=== PATIENT | male | born 1960 | race Caucasian/White ===

== ENCOUNTER → 2017-08-28 | Day surgery (SDC) | payer OTHER ==
[~2017-08-28] VITALS: Ht 180.3 cm; Wt 79.4 kg
[~2017-08-28] MED LIST: PERCOCET 5-3251 EACH PO
--- NOTE | 2017-08-28 07:14 | ED GI/GU/ABDOMINAL COMPLAINT ---
History of Present Illness General Chief Complaint: Low Back Pain/Injury Stated Complaint: LOW BACK PAIN SINCE TUESDAY, EPISODES OF VOMITING Source: patient, family, old records Exam Limitations: no limitations Vital Signs & Intake/Output Vital Signs & Intake/Output Vital Signs Date Time Temp Pulse Resp B/P B/P Pulse O2 O2 Flow FiO2 Mean Ox Delivery Rate 08/28 1254 98.7 76 18 135/72 99 Room Air 08/28 1138 98.0 70 17 152/74 100 Room Air 08/28 0940 74 159/76 05 0822 97.6 72 17 148/82 99 Room Air 08/28 0744 98 Room Air 08/28 0648 95.7 77 18 156/91 98 Room Air Allergies Coded Allergies: NO KNOWN ALLERGIES (NONE 08/28/17) Triage Note: PT FROM HOME C/O LOWER BILATERAL BACK PAIN/ N/V SINCE TUESDAY. PT STATES SINCE TUESDAY AT WORK PT BEGAN TO FEEL BACK PAIN THAT LEAD PT TO N/V X2. PT STATES THAT IT HAS BECOME WORSE, WEAK, LETHARGIC. AFEBRILE IN TRIAGE. PTS BP ELEVATED IN TRIAGE 156/91. Triage Nurses Notes Reviewed? yes Onset: 2 days Duration: day(s):, changing over time, continues in ED, waxing and waning Timing: recent history Quality/Severity: sharpness, severe, vomiting Location: right flank Radiation: no radiation Activities at Onset: rest Prior Abdominal Problems: none Past Sexual History: Unobtainable at this time No Modifying Factors: none Associated Symptoms: abdominal pain, loss of appetite, nausea/vomiting HPI: 2 days prior to admission patient complains of right sharp waxing and waning moderate to severe flank pain followed by nausea and vomiting. The pain is been intermittent. Prior to admission pain became severe with nausea and diaphoresis. There's been no fever chills diarrhea chest pain cough shortness breath headache dysuria rash bleeding Past History Travel History Traveled to [place] past 21 day No Medical History Any Pertinent Medical History? see below for history Neurological: NONE EENT: NONE Cardiovascular: NONE Respiratory: NONE Gastrointestinal: GERD Hepatic: NONE Renal: NONE Musculoskeletal: NONE Psychiatric: NONE Endocrine: NONE Surgical History Surgical History: non-contributory Psychosocial History What is your primary language Turkish Tobacco Use: Never used Family History Hx Contributory? No Review of Systems Review of Systems Constitutional: Reports: no symptoms. EENTM: Reports: no symptoms. Respiratory: Reports: no symptoms. Cardiovascular: Reports: no symptoms. GI: Reports: see HPI, abdominal pain, nausea, vomiting. Genitourinary: Reports: no symptoms. Musculoskeletal: Reports: no symptoms. Skin: Reports: no symptoms. Neurological/Psychological: Reports: no symptoms. Hematologic/Endocrine: Reports: no symptoms. Immunologic/Allergic: Reports: no symptoms. All Other Systems: Reviewed and Negative Physical Exam Physical Exam General Appearance: well developed/nourished, alert, awake, anxious, moderate distress, thin Head: atraumatic, normal appearance Eyes: Bilateral: normal appearance, PERRL, EOMI, normal inspection. Ears, Nose, Throat, Mouth: hearing grossly normal, moist mucous membrane Neck: normal inspection, supple, full range of motion, normal alignment Respiratory: normal breath sounds, chest non-tender, no respiratory distress, quiet respiration, lungs clear Cardiovascular: regular rate/rhythm, normal peripheral pulses, norml femoral pulses equa Peripheral Pulses: 4+ carotid (R), 4+ carotid (L) Gastrointestinal: normal bowel sounds, soft, non-tender, no organomegaly Male Genitals: normal genitalia Back: normal inspection, normal range of motion, no vertebral tenderness Extremities: normal range of motion, no ligament instability Neurologic/Psych: no motor/sensory deficits, awake, alert, oriented x 3, normal gait, normal mood/affect, aphasia Skin: intact, normal color, warm/dry Core Measures ACS in differential dx? No Sepsis Present: No Sepsis Focused Exam Completed? No Progress Differential Diagnosis: biliary colic, gastritis, pancreatitis, PUD/GERD, ureterolithiasis Plan of Care: Orders Procedure Date/time Status URINALYSIS 08/28 0711 Complete LIPASE 08/28 0711 Complete COMPREHENSIVE METABOLIC PANEL 08/28 0711 Complete CBC WITHOUT DIFFERENTIAL 08/28 0611 Complete Laboratory Tests 08/28/17 0755: Urinalysis HEAVY H, Urine Color YEL, Urine Clarity HAZY H, Urine pH 7.5, Ur Specific [place] 1.020, Urine Protein NEG, Urine Ketones NEG, Urine Nitrite NEG, Urine Bilirubin NEG, Urine Urobilinogen 0.2, Ur Leukocyte Esterase NEG, Ur Microscopic SEDIMENT EXAMINED, Urine RBC 3-5, Urine WBC 1-3 H, Ur Epithelial Cells RARE, Urine Bacteria FEW H, Granular Casts 1-3 H, Urine Mucus FEW, Urine Hemoglobin MOD H, Urine Glucose NEG 05/06/18 0735: Anion Gap 12, Estimated GFR > 60, BUN/Creatinine Ratio 17.5, Glucose 126 H, Calcium 9.1, Total Bilirubin 0.6, AST 16 L, ALT 23, Alkaline Phosphatase 96, Total Protein 7.2, Albumin 4.1, Globulin 3.1, Albumin/Globulin Ratio 1.3, Lipase 77, CBC w Diff MAN DIFF ORDERED, RBC 5.09, MCV 87.3, MCH 29.2, MCHC 33.5, RDW 14.2, MPV 8.1, Gran % 78.9 H, Lymphocytes % 10.5 L, Monocytes % 9.9 H, Eosinophils % 0.5, Basophils % 0.2, Absolute Granulocytes 14.2 H, Absolute Lymphocytes 1.9, Absolute Monocytes 1.8 H, Absolute Eosinophils 0.1, Absolute Basophils 0, Platelet Estimate ADEQUATE, Normocytic RBCs VERIFIED, Normochromic RBCs VERIFIED Diagnostic Imaging: Viewed by Me: CT Scan. Discussed w/RAD: CT Scan. Radiology Impression: 1. Mild right-sided hydroureteronephrosis due to an obstructing 0.3 cm probable uric acid stone at the right ureterovesical junction. 2. No additional renal, ureteral or bladder calculi. 3. Small fat- containing umbilical hernia and bilateral inguinal hernias. 4. Moderate degenerative disc disease at the lumbosacral junction. Initial ED EKG: none Departure Departure Time of Disposition: 1231 Disposition: STILL A PATIENT Condition: Stable Clinical Impression Primary Impression: Lower obstructive uropathy Secondary Impressions: Leukocytosis Referrals: Chris De León MD (PCP/Family) Departure Forms: Customer Survey General Discharge Information OR/GI Note Spoke With: Edgar Mauricio MD ED Treatment Decision: DIYA JASMINE requires urgent operative management or an emergent procedure that cannot be performed in the Emergency Room setting. Transport To: [facility]
[2017-08-28 08:04] LABS: ABSOLUTE BASOPHIL COUNT 0 /CUMM (0.0-0.2); ABSOLUTE EOSINOPHIL COUNT 0.1 /CUMM (0.0-0.7); ABSOLUTE GRANULOCYTE CT 14.2 /CUMM (1.4-6.5); ABSOLUTE LYMPH COUNT 1.9 /CUMM (1.2-3.4); ABSOLUTE MONOCYTE COUNT 1.8 /CUMM (0.10-0.60); BASOPHIL % 0.2 % (0.0-2.0); EOSINOPHIL % 0.5 % (0-5); GRANULOCYTE % 78.9 % (42.2-75.2); HEMATOCRIT 44.4 % (42-52); MEAN CORPUSCULAR HGB 29.2 PG (27.0-31.0); MEAN CORPUSCULAR HGB CONC 33.5 G/DL (33.0-37.0); MEAN CORPUSCULAR VOLUME 87.3 FL (80.0-94.0); MEAN PLATELET VOLUME 8.1 FL (7.4-10.4); PLATELET COUNT 373 /CUMM (130-400); RBC DISTRIBUTION WIDTH 14.2 % (11.5-14.5); RED BLOOD CELL CT 5.09 /CUMM (4.70-6.10)
--- NOTE | 2017-08-28 10:25 | CT SCAN REPORT ---
EXAMINATION: CT ABDOMEN AND PELVIS WITHOUT CONTRAST CLINICAL INFORMATION: Right flank pain. Nausea, vomiting. Presumptive diagnosis of renal colic. COMPARISON: None. TECHNIQUE: Multidetector volumetric imaging was performed from the superior aspect of the liver through the pubic symphysis. Sagittal and coronal reformatted images were obtained on the technologist workstation. DLP: 283.49 mGy-cm. FINDINGS: LUNG BASES: The visualized lung bases are unremarkable. LIVER, GALLBLADDER, AND BILIARY TREE: The liver is normal in size, shape, and attenuation. No focal hepatic lesion on noncontrast imaging. No biliary ductal dilatation is present. The gallbladder is unremarkable with no evidence of radiopaque gallstones, gallbladder wall thickening, or obvious pericholecystic inflammatory changes. PANCREAS: Unremarkable on noncontrast imaging. SPLEEN, ADRENAL GLANDS: Unremarkable on noncontrast imaging. KIDNEYS AND URETERS: There is mild right-sided hiatal ureter nephrosis seen due to an obstructing 0.3 cm calcification at the right ureterovesical junction. This calcification is too small to accurately characterize in terms of stone composition but has attenuation values that range between 261 and 410 Hounsfield units, favoring a uric acid composition. No additional renal or ureteral calculi are seen. There is mild right perinephric and periureteric stranding seen. BLADDER: Suboptimally assessed due to underdistention, but grossly unremarkable. No bladder calculi seen. PELVIC VISCERA: Unremarkable. GASTROINTESTINAL TRACT: The small and large bowel are unremarkable. The appendix is unremarkable. ABDOMINAL WALL: There is a small fat-containing umbilical hernia and bilateral small fat-containing direct inguinal hernias. LYMPH NODES, VASCULAR: Mild atherosclerotic calcification of the distal abdominal aorta seen. No significant abdominal or pelvic adenopathy or free fluid collection. OSSEOUS STRUCTURES: Mild vertebral spondylosis in lower thoracic and in lumbar spine. Moderate degenerative disc disease at the lumbosacral junction with disc space narrowing, vertebral endplate sclerosis and spurring and vacuum disc phenomenon seen. No suspicious bone findings. IMPRESSION: 1. Mild right-sided hydroureteronephrosis due to an obstructing 0.3 cm probable uric acid stone at the right ureterovesical junction. 2. No additional renal, ureteral or bladder calculi. 3. Small fat-containing umbilical hernia and bilateral inguinal hernias. 4. Moderate degenerative disc disease at the lumbosacral junction.
--- NOTE | 2017-08-28 12:47 | Cons- Urology ---
General Information and HPI Consulting Request Date of Consult: 08/28/17 Requested By: MD Cheryl, [facility] Reason for Consult: severe right colic with N/V and sepsis (wbc at 18) Source of Information: patient Exam Limitations: no limitations History of Present Illness: 56 yr old with right colic X 3 days: pain with n/v worse and came to ER with mild fever. CT reveals stone right ureter with hydro. Dicussed with pt proceedure with future eswl stent, risks, benefits. pt in agreement to proceed with stent. Allergies/Medications Allergies: Coded Allergies: NO KNOWN ALLERGIES (NONE 08/28/17) Current Medications: Current Medications Sig/Nilay Start time Last Medication Dose Route Stop Time Status Admin Ceftriaxone Sodium 0 .STK-MED ONE / 1234 DC .ROUTE Ceftriaxone Sodium 1,000 MG ONCE ONE / 1230 DC 05/06 IV 05/06 1231 1234 Ketorolac 0 .STK-MED ONE / 0730 DC Tromethamine .ROUTE Ketorolac 30 MG ONCE ONE / 0715 DC 05/06 Tromethamine IV 05/06 0716 0740 Morphine Sulfate 0 .STK-MED ONE 05/ 0941 DC .ROUTE Morphine Sulfate 4 MG ONCE ONE / 0930 DC 05/06 IV 05/06 0931 0939 Ondansetron HCl 0 .STK-MED ONE 05/ 0731 DC .ROUTE Ondansetron HCl 4 MG ONCE ONE / 0715 DC 05/06 IV 05/06 0716 0740 Sodium Chloride 1,000 ML BOLUS ONE / 1130 DC 05/06 IV 05/06 1229 1102 Sodium Chloride 1,000 ML BOLUS ONE 05/ 0930 DC 05/06 IV 05/06 1029 0939 Sodium Chloride 1,000 ML BOLUS ONE 05/ 0715 DC 05/06 IV 05/06 0814 0740 Past History Medical History Neurological: NONE EENT: NONE Cardiovascular: NONE Respiratory: NONE Gastrointestinal: GERD Hepatic: NONE Renal: NONE Musculoskeletal: NONE Psychiatric: NONE Endocrine: NONE Surgical History Pertinent Surgical History: non-contributory Psychosocial History Where Do You Live? Home Who Do You Live With? spouse Services at Home: None Primary Language: Uzbek Smoking Status: Never Smoked ETOH Use: occasional use Illicit Drug Use: marijuana Functional Ability ADLs Independent: dressing, eating, toileting, bathing. Ambulation: independent IADLs Independent: shopping, housework, finances, food prep, telephone, transportation , medication admin. Employment History Employment: Employed Profession/Employer: maintenance Retired? no Review of Systems Review of Systems Constitutional: Reports: see HPI, chills. Denies: no symptoms. EENTM: Denies: no symptoms. Cardiovascular: Denies: no symptoms. Respiratory: Denies: no symptoms. GI: Reports: abdominal pain, bloating. Genitourinary: Denies: no symptoms. Musculoskeletal: Denies: no symptoms. Skin: Denies: no symptoms. Exam & Diagnostic Data Vital Signs and I&O Vital Signs Date Time Temp Pulse Resp B/P B/P Pulse O2 O2 Flow FiO2 Mean Ox Delivery Rate 08/28 1138 98.0 70 17 152/74 100 Room Air 08/28 0940 74 159/76 08/28 0822 97.6 72 17 148/82 99 Room Air 08/28 0744 98 Room Air 08/28 0648 95.7 77 18 156/91 98 Room Air Intake & Output 08/28 1600 08/28 0800 / 0000 08/27 1600 08/27 0800 08/27 0000 Intake Total 1000 Output Total Balance 1000 Intake, IV 1000 Patient 175 lb Weight Weight Reported by Patient Measurement Method Physical Exam General Appearance: well developed/nourished Head: atraumatic Neck: normal inspection Respiratory: normal breath sounds Cardiovascular: regular rate/rhythm Gastrointestinal: normal bowel sounds Back: CVA tenderness (R) Extremities: normal inspection Neurologic/Psych: no motor/sensory deficits, awake, alert, oriented x 3 Skin: intact, normal color Reproductive: Normal male genitalia Last 24 Hours of Labs: Laboratory Tests 08/28 08/28 0755 0735 Chemistry Sodium (137 - 145 mmol/L) 140 Potassium (3.5 - 5.1 mmol/L) 3.9 Chloride (98 - 107 mmol/L) 104 Carbon Dioxide (22 - 30 mmol/L) 24 Anion Gap (5 - 16) 12 BUN (9 - 20 mg/dL) 14 Creatinine (0.7 - 1.2 mg/dL) 0.8 Estimated GFR (>60 ml/min) > 60 BUN/Creatinine Ratio (7 - 25 %) 17.5 Glucose (65 - 99 mg/dL) 126 H Calcium (8.4 - 10.2 mg/dL) 9.1 Total Bilirubin (0.2 - 1.3 mg/dL) 0.6 AST (17 - 59 U/L) 16 L ALT (21 - 72 U/L) 23 Alkaline Phosphatase (< 127 U/L) 96 Total Protein (6.3 - 8.2 g/dL) 7.2 Albumin (3.5 - 5.0 g/dL) 4.1 Globulin (1.9 - 4.2 gm/dL) 3.1 Albumin/Globulin Ratio (1.1 - 2.2 %) 1.3 Lipase (23 - 300 U/L) 77 Hematology CBC w Diff MAN DIFF ORDERED WBC (4.8 - 10.8 /CUMM) 18.0 H RBC (4.70 - 6.10 /CUMM) 5.09 Hgb (14.0 - 18.0 G/DL) 14.9 Hct (42 - 52 %) 44.4 MCV (80.0 - 94.0 FL) 87.3 MCH (27.0 - 31.0 PG) 29.2 MCHC (33.0 - 37.0 G/DL) 33.5 RDW (11.5 - 14.5 %) 14.2 Plt Count (130 - 400 /CUMM) 373 MPV (7.4 - 10.4 FL) 8.1 Gran % (42.2 - 75.2 %) 78.9 H Lymphocytes % (20.5 - 51.1 %) 10.5 L Monocytes % (1.7 - 9.3 %) 9.9 H Eosinophils % (0 - 5 %) 0.5 Basophils % (0.0 - 2.0 %) 0.2 Absolute Granulocytes (1.4 - 6.5 /CUMM) 14.2 H Absolute Lymphocytes (1.2 - 3.4 /CUMM) 1.9 Absolute Monocytes (0.10 - 0.60 /CUMM) 1.8 H Absolute Eosinophils (0.0 - 0.7 /CUMM) 0.1 Absolute Basophils (0.0 - 0.2 /CUMM) 0 Platelet Estimate (ADEQUATE) ADEQUATE Normocytic RBCs VERIFIED Normochromic RBCs VERIFIED Urines Urinalysis HEAVY H Urine Color (YEL,AMB,STR) YEL Urine Clarity (CLEAR) HAZY H Urine pH (5.0 - 8.0) 7.5 Ur Specific [place] (1.001 - 1.035) 1.020 Urine Protein (NEG,<30 MG/DL) NEG Urine Ketones (NEG) NEG Urine Nitrite (NEG) NEG Urine Bilirubin (NEG) NEG Urine Urobilinogen (0.1 - 1.0 EU/dl) 0.2 Ur Leukocyte Esterase (NEG) NEG Ur Microscopic SEDIMENT EXAMINED Urine RBC (0 - 5 /HPF) 3-5 Urine WBC (0 - 2 /HPF) 1-3 H Ur Epithelial Cells (NONE,FEW) RARE Urine Bacteria (NEG/NONE) FEW H Granular Casts (NONE /LPF) 1-3 H Urine Mucus (FEW,NONE) FEW Urine Hemoglobin (NEG) MOD H Urine Glucose (N MG/DL) NEG Imaging Results: PATIENT: DIYA JASMINE PRESENT AGE: 56 PATIENT ACCOUNT NO: [id number] : 58 LOCATION: [facility] ORDERING PHYSICIAN: Norberto Smith MD SERVICE DATE: 08/28/17 EXAM TYPE: CAT - CT ABD & PELVIS W/O IV CONTRAS EXAMINATION: CT ABDOMEN AND PELVIS WITHOUT CONTRAST CLINICAL INFORMATION: Right flank pain. Nausea, vomiting. Presumptive diagnosis of renal colic. COMPARISON: None. TECHNIQUE: Multidetector volumetric imaging was performed from the superior aspect of the liver through the pubic symphysis. Sagittal and coronal reformatted images were obtained on the technologist workstation. DLP: 283.49 mGy-cm. FINDINGS: LUNG BASES: The visualized lung bases are unremarkable. LIVER, GALLBLADDER, AND BILIARY TREE: The liver is normal in size, shape, and attenuation. No focal hepatic lesion on noncontrast imaging. No biliary ductal dilatation is present. The gallbladder is unremarkable with no evidence of radiopaque gallstones, gallbladder wall thickening, or obvious pericholecystic inflammatory changes. PANCREAS: Unremarkable on noncontrast imaging. SPLEEN, ADRENAL GLANDS: Unremarkable on noncontrast imaging. KIDNEYS AND URETERS: There is mild right-sided hiatal ureter nephrosis seen due to an obstructing 0.3 cm calcification at the right ureterovesical junction. This calcification is too small to accurately characterize in terms of stone composition but has attenuation values that range between 261 and 410 Hounsfield units, favoring a uric acid composition. No additional renal or ureteral calculi are seen. There is mild right perinephric and periureteric stranding seen. BLADDER: Suboptimally assessed due to underdistention, but grossly unremarkable. No bladder calculi seen. PELVIC VISCERA: Unremarkable. GASTROINTESTINAL TRACT: The small and large bowel are unremarkable. The appendix is unremarkable. ABDOMINAL WALL: There is a small fat-containing umbilical hernia and bilateral small fat-containing direct inguinal hernias. LYMPH NODES, VASCULAR: Mild atherosclerotic calcification of the distal abdominal aorta seen. No significant abdominal or pelvic adenopathy or free fluid collection. OSSEOUS STRUCTURES: Mild vertebral spondylosis in lower thoracic and in lumbar spine. Moderate degenerative disc disease at the lumbosacral junction with disc space narrowing, vertebral endplate sclerosis and spurring and vacuum disc phenomenon seen. No suspicious bone findings. IMPRESSION: 1. Mild right-sided hydroureteronephrosis due to an obstructing 0.3 cm probable uric acid stone at the right ureterovesical junction. 2. No additional renal, ureteral or bladder calculi. 3. Small fat-containing umbilical hernia and bilateral inguinal hernias. 4. Moderate degenerative disc disease at the lumbosacral junction. Assessment/Plan Assessment/Plan right obstructing stone with hydro/sepsis. FOr right stent Copies To: Edgar Mauricio MD Consult Acknowledgment - Thank you for your consult request. Attending MD Review Statement Attending Statement Attending MD Statement: examined this patient, discuss w/resident/PA/LOGISTICS ENGINEER Attending Assessment/Plan: right stone: right stent now.
[2017-08-28 12:54] VITALS: BP 135/72
--- NOTE | 2017-08-28 15:59 | Operative Report ---
Operative/Inv Procedure Report Surgery Date: 08/28/17 Name of Procedure: Cystoscopy. Right retrograde pyelogram with stent insertion. Fluoroscopy. Pre-Operative Diagnosis: Right ureter stone with severe colic and nausea/vomiting. Post-Operative Diagnosis: Same Estimated Blood Loss: scant Surgeon/Program Services Planner: Loretta Mauricio, [facility] Anesthesia: moderate sedation Implants: 6 X 24 stent Complications: none Condition: improved Operative/Procedure Note Note: The patient was taken to the operating room placed OR table in supine position. Timeout was performed, with the patient awake, in order to confirm anesthesia, and other pertinent perioperative information. After adequate anesthesia, and antibiotics, the patient was then placed lithotomy stirrups, draped and prepped in the usual surgical fashion. A 22 Italian cystoscope sheath with 30 angle lens was inserted into the urethra, subsequently into the bladder without difficulty. Upon thorough and systematic surveillance, the bladder was noted to be free of tumor, free of stone. Both ureteral orifices were in their orthotopic position with clear reflux from the left side, and no reflux on the right. The right orifice was intubated with an open-ended ureteral access catheter. Retrograde pyelogram was gently performed in order to confirm hydronephrosis. Additionally, the retrograde helps to better define the anatomy of the ureter, and kidney using fluoroscopy. The open -ended tiger tail stent was then removed. The right orifice was then intubated with a 0.035 Glidewire, which was advanced into the right ureter, and into the right upper pole of the kidney without difficulty. Over this Glidewire, a 6 x 22 Bard onlay double J stent was railroaded into the right ureter without difficulty. With the proximal coil in the right renal pelvis, and the distal coil in the bladder, the Glidewire was removed, and the stent remained in proper place. Large amount of purulent discharge was noted to drained from the right kidney, after placement of the stent on the right side. All sponge needle and instrument counts were correct at the end of the case. The bladder was then drained via the cystoscope, and then the scope removed without difficulty. The patient tolerated the procedure well was taken to recovery room in satisfactory condition. Discharge Disposition: PACU CC: Edgar Mauricio MD
--- NOTE | 2017-08-28 17:06 | RADIOLOGY REPORT ---
EXAMINATION: XR ABDOMEN CLINICAL INDICATION: Right cystoscopy, stent placement COMPARISON: CT 08/28/2017 TECHNIQUE: Intraoperative fluoroscopy provided to Dr. Mauricio. 2 fluoroscopic images as a dose report were submitted. FLUOROSCOPY TIME: 5.2 seconds IMPRESSION: The images are not labeled with respect to sidedness. Initial image shows a wire ascending the ureter into the renal collecting system. Subsequent image shows a nephroureteral stent in place.
== END ==
LOC: ERH 06:34 → STS 13:15 → ERH 15:20
PROVIDERS: Emergency Medicine
DX: N13.2 Hydronephrosis with renal and ureteral calculous obstruction (principal); R11.2 Nausea with vomiting, unspecified; K21.9 Gastro-esophageal reflux disease without esophagitis; M54.9 Dorsalgia, unspecified
CPT/HCPCS: 74018; 74176; 81001; 96361; 96374; 96375; C2617; J0696; J1885; J2250; J2405

== ENCOUNTER → 2017-08-30 | Day surgery (SDC) | payer OTHER ==
[~2017-08-30] VITALS: Ht 180.3 cm; Wt 79.4 kg
--- NOTE | 2017-09-01 09:32 | Operative Report ---
Operative/Inv Procedure Report Surgery Date: 08/30/17 Name of Procedure: right ureter ESWL, fluoroscopy: cysto-right stent removal Pre-Operative Diagnosis: right ureter stone with hydro, ARF, and stent Post-Operative Diagnosis: resolved pain and hydronephrosis Estimated Blood Loss: scant Surgeon/Buttoner: Edgar Mauricio MD Anesthesia: moderate sedation Specimens: Right stent Complications: None Condition: Improved Operative/Procedure Note Note: The patient was taken to the operating room and placed on the ESWL table in supine position. Time out was performed, with the patient awake, to confirm identity, procedure, laterality, and other pertinent bronwyn-operative information. After adequate anesthesia, the patient was positioned so that the right flank was placed over the ESWL table cut-out, and overlying the dome of the shockwave generator. C-arm fluroscopy, as well as renal US was used to locate the stone, and evaluate the right kidney. The stone was faintly visible on fluroloscopy at the right ureter. Renal US confirmed mild hydronephrosis with no additional stone seen in the right kidney. The right ureter stone was approximate 5 mm in size, and faintly visible with fluoroscopy. Using the C-Arm fluoroscopy in an A-P, and Oblique view, the position of the ureter stone was optimized at the center of the crosshairs. At this point, E.S.W.L. was initiated at low power levels x 200 shocks. After noting the patient's tolerance to the shockwaves, the shockwave power level was quickly maximized. At the end of the procedure, the composition of the stone had changed significantly indicating the pulverization of the ureter stone. A total of 3000 shockwaves were delivered to the stone in order to achieve adequate lithotrypsy. Once the ESWL concluded, the pt. was repositioned in frog-legged position, draped and prepped in the usual surgical fashion. A 22 Finnish cystoscope sheath with a 30 angle lens was then inserted into the bladder. The bladder was thoroughly and systematically surveyed revealing no tumor no stone. Both ureteral orifices were in their orthotopic position. The right orifice was intubated with a stent. The alligator forcep was then used to grasp the stent, and the cystoscope along with entire stent was removed without difficulty. The patient tolerated the procedures well, was awakened, and taken to recovery in satisfactory condition via stretcher. The pt will be dischared to home with pain meds, diet orders, and intructions to catch fragments with straining the urine. The patient is to have follow-up renal ultrasound and KUB within 1-2 weeks and f/u in the office after discharge. Discharge Disposition: Same Day Admissions CC: Hang GRAY,Edgar
== END ==
LOC: STS 02:25
DX: N13.2 Hydronephrosis with renal and ureteral calculous obstruction (principal); N17.9 Acute kidney failure, unspecified

== ENCOUNTER 2017-10-07 19:33 | Emergency (ER) | payer OTHER ==
[~2017-10-07] VITALS: Ht 177.8 cm; Wt 77.1 kg
--- NOTE | 2017-10-07 21:48 | ED GENERAL ADULT ---
See Addendum History of Present Illness General Chief Complaint: General Adult Stated Complaint: "SOMTHING I WAS EATING GOT STUCK IN MY THROAT" Source: patient Exam Limitations: no limitations Vital Signs & Intake/Output Vital Signs & Intake/Output Vital Signs Date Time Temp Pulse Resp B/P B/P Pulse O2 O2 Flow FiO2 Mean Ox Delivery Rate 10/07 2325 98.4 75 18 166/87 98 Room Air 10/07 2143 98 Room Air 10/07 1956 98.1 65 18 160/86 98 Room Air ED Intake and Output 10/08 0000 10/07 1200 Intake Total 0 Output Total Balance 0 Intake, Oral 0 Patient 170 lb Weight Weight Reported by Patient Measurement Method Allergies Coded Allergies: NO KNOWN ALLERGIES (NONE 08/28/17) Triage Note: PT FROM HOME C/O FOOD STUCK IN THROAT?? PT STATES AROUND 1900 HE WAS EATING A SALAD AND STEAK AND NOW FEELS SOMETHING SCRATCHING IN THE BACK OF THE THROAT. PT STATES THAT HE FEELS A SCRATCHING FEELING TO THE BACK OF HIS THROAT, PT STUCK HIS FINGERS DOWN HIS THROAT TO TRY AND DISLODGE ANYTHING THAT BE MAY THERE. PT WANTS TO RULE OUT ANY METAL FROM HIS GRILL IN HIS THROAT. PT ABLE TO TOLERATE LIQUIDS, PT SELF INDUCED VOMITING X2. PTS AIRWAY PATENT 98% O2 ON RA. PT ALSO QUESTIONING POSSIBLE "CHIP OF A TOOTH THAT SCRAPED ME" ,VSS. Triage Nurses Notes Reviewed? yes Onset: Abrupt Duration: hour(s): (2), constant, continues in ED Timing: single episode today Injury Environment: home Severity: mild, moderate Severity Numbers: 7 No Modifying Factors: none Modifying Factors: Worsens With: other (Swallowing). HPI: 57-year-old male history of GERD and nephrolithiasis presents for evaluation of painful swallowing. Patient states symptoms started several hours prior to presentation when he was eating. He was eating boneless steak and salad when he suddenly felt the sensation that something was stuck in his throat. He feels like it is very painful for him to swallow he feels that there is something scratching the back of his throat. He denies any difficulty tolerating fluids no drooling no coughing or shortness of breath. He states prior to this he was feeling completely fine. No fevers no other associated symptoms. He does note that he tried to make himself throw up 2. (Black PA,Neno) Reconcile Medications Oxycodone HCl/Acetaminophen (Percocet 5-325 MG Tablet) 5 MG-325 MG TABLET 1 TAB PO 4 TIMES/DAY PRN pain (Kelsie GRAY,Jose Sanchez) Past History Travel History Traveled to [place] past 21 day No Medical History Any Pertinent Medical History? see below for history Neurological: NONE EENT: NONE Cardiovascular: NONE Respiratory: NONE Gastrointestinal: GERD Hepatic: NONE Renal: nephrolithiasis Musculoskeletal: NONE Psychiatric: NONE Endocrine: NONE Surgical History Surgical History: non-contributory Psychosocial History Services at Home None What is your primary language Icelandic Tobacco Use: Never used Illicit Drug Use: marijuana Family History Hx Contributory? No (Neno Conley) Review of Systems Review of Systems Constitutional: Reports: no symptoms. EENTM: Reports: throat pain. Respiratory: Reports: no symptoms. Cardiovascular: Reports: no symptoms. GI: Reports: no symptoms. Genitourinary: Reports: no symptoms. Musculoskeletal: Reports: no symptoms. Skin: Reports: no symptoms. Neurological/Psychological: Reports: no symptoms. Hematologic/Endocrine: Reports: no symptoms. Immunologic/Allergic: Reports: no symptoms. All Other Systems: Reviewed and Negative (Neno oCnley) Physical Exam Physical Exam General Appearance: well developed/nourished, no apparent distress, alert, awake Head: atraumatic, normal appearance Eyes: Bilateral: normal appearance, PERRL, EOMI. Ears, Nose, Throat: hearing grossly normal, poor dentition overall Neck: normal inspection, supple, full range of motion Respiratory: normal breath sounds, chest non-tender, no respiratory distress, lungs clear Cardiovascular: regular rate/rhythm, normal peripheral pulses Peripheral Pulses: 2+ radial (R), 2+ radial (L) Gastrointestinal: soft, non-tender Back: normal inspection, normal range of motion Extremities: normal inspection, normal capillary refill, normal range of motion, no edema Neurologic/Psych: no motor/sensory deficits, awake, alert, oriented x 3, normal gait Skin: intact, normal color, warm/dry Lymphatic: no anterior cervical razia Core Measures ACS in differential dx? No CVA/TIA Diagnosis: No Sepsis Present: No Sepsis Focused Exam Completed? No (Neno Conley) Progress Differential Diagnoses I considered the following diagnoses in my evaluation of the patient: [ Esophageal foreign body, esophageal stricture, peritonsillar abscess, retropharyngeal abscess] Plan of Care: Orders Procedure Date/time Status URINALYSIS 10/[address] NECK W IV CONTRAST 10/07 2146 Active TROPONIN LEVEL 10/07 2130 Complete COMPREHENSIVE METABOLIC PANEL 10/07 2130 Complete CBC WITHOUT DIFFERENTIAL 10/07 2130 Complete Laboratory Tests 10/07/172140: Anion Gap 9, Estimated GFR > 60, BUN/Creatinine Ratio 22.5, Glucose 108 H, Calcium 9.3, Total Bilirubin 0.4, AST 22, ALT 26, Alkaline Phosphatase 95, Troponin I < 0.01, Total Protein 7.3, Albumin 4.2, Globulin 3.1, Albumin/ Globulin Ratio 1.4, CBC w Diff MAN DIFF ORDERED, RBC 4.92, MCV 87.1, MCH 29.6, MCHC 34.0, RDW 14.1, MPV 7.4, Gran % 85.3 H, Lymphocytes % 7.4 L, Monocytes % 6.5, Eosinophils % 0.5, Basophils % 0.3, Absolute Granulocytes 17.1 H, Segmented Neutrophils 92 H, Absolute Lymphocytes 1.5, Lymphocytes 5 L, Monocytes 3, Absolute Monocytes 1.3 H, Absolute Eosinophils 0.1, Absolute Basophils 0.1, Platelet Estimate VERIFIED BY SMEAR, Normocytic RBCs VERIFIED, Normochromic RBCs VERIFIED, Fld Total RBCs Counted 100 Patient seen and evaluated. He is here with painful swallowing after eating. He is able tolerate fluids. He is tolerating secretions. No abnormal findings on exam other than very poor dentition. Vital signs are stable. A CT scan of the neck was obtained. Also chest x-ray and labs. Patient medicated with GI cocktail and Toradol. Patient does have a elevated white count of 20,000. His last white count one month ago was 18,000. He has no fevers. There is no signs of infection currently. Check for abscess on CT. Also get a chest x-ray and urinalysis. Patient signed out to tyrone Martinez pending ct. Initial ED EKG: none Hand-Off Endorsed To: Deisy Rodriges Endorsed Time: 2321 Pending: CT, labs (Neno Conley) Departure Departure Disposition: STILL A PATIENT Condition: Stable Clinical Impression Primary Impression: Throat pain in adult Referrals: Chris De León MD (PCP/Family) Additional Instructions: Follow-up with your primary care doctor for repeat blood work in one week. Continue Tylenol or ibuprofen as needed. Gargle salt water drink warm tea throat lozenges. Percocet for severe pain only. Monitor symptoms return with any concerns. Departure Forms: Customer Survey General Discharge Information Prescriptions: Current Visit Scripts Oxycodone HCl/Acetaminophen (Percocet 5-325 MG Tablet) 1 TAB PO 4 TIMES/DAY PRN pain #10 TAB (Neno Conley) PA/SOFTWARE DEVELOPMENT PROJECT MANAGER Co-Sign Statement Statement: ED Attending supervision documentation- [] I saw and evaluated the patient. I have also reviewed all the pertinent lab results and diagnostic results. I agree with the findings and the plan of care as documented in the PA's/SOFTWARE DEVELOPMENT PROJECT MANAGER's documentation. [x] I have reviewed the ED Record and agree with the PA's/SOFTWARE DEVELOPMENT PROJECT MANAGER's documentation. [] Additions or exceptions (if any) to the PAs/SOFTWARE DEVELOPMENT PROJECT MANAGER's note and plan are summarized below: [] (Kelsie GRAY,Jose Sanchez) Critical Care Note Critical Care Note Critical Care Time: non-applicable (Neno Conley)
[2017-10-07 21:50] LABS: ABSOLUTE BASOPHIL COUNT 0.1 /CUMM (0.0-0.2); ABSOLUTE EOSINOPHIL COUNT 0.1 /CUMM (0.0-0.7); ABSOLUTE GRANULOCYTE CT 17.1 /CUMM (1.4-6.5); ABSOLUTE LYMPH COUNT 1.5 /CUMM (1.2-3.4); ABSOLUTE MONOCYTE COUNT 1.3 /CUMM (0.10-0.60); BASOPHIL % 0.3 % (0.0-2.0); EOSINOPHIL % 0.5 % (0-5); GRANULOCYTE % 85.3 % (42.2-75.2); HEMATOCRIT 42.9 % (42-52); MEAN CORPUSCULAR HGB 29.6 PG (27.0-31.0); MEAN CORPUSCULAR VOLUME 87.1 FL (80.0-94.0); MEAN PLATELET VOLUME 7.4 FL (7.4-10.4); PLATELET COUNT 362 /CUMM (130-400); RBC DISTRIBUTION WIDTH 14.1 % (11.5-14.5); RED BLOOD CELL CT 4.92 /CUMM (4.70-6.10); WHITE BLOOD CELL COUNT 20.1 /CUMM (4.8-10.8)
[2017-10-07] MEDS ORDERED: PERCOCET 5-3251 EACH PO (23:22)
[2017-10-07 23:25] VITALS: BP 166/87
--- NOTE | 2017-10-07 23:36 | RADIOLOGY REPORT ---
EXAMINATION: XR CHEST CLINICAL INFORMATION: Pneumonia or aspiration COMPARISON: None TECHNIQUE: 2 views of the chest were obtained. FINDINGS: No significant abnormality is noted involving the heart, lungs, mediastinum, bony thorax or soft tissues. IMPRESSION: Unremarkable examination.
--- NOTE | 2017-10-08 08:56 | CT SCAN REPORT ---
EXAMINATION: CT NECK WITH CONTRAST CLINICAL INFORMATION: Pain in throat while eating steak. Foreign body sensation. COMPARISON: None TECHNIQUE: IV contrast and CT angiography of the neck with multiple 3-D reformatted images processed on the technologist workstation. DLP: 398 milligray CM. Intravenous contrast: Optiray 320 95 mm. DLP: 398 mGy-cm FINDINGS: An 8 mm linear density is present in the submucosa along the anterior left lateral aspect of the vallecula (axial image 63/111, series 2, series 601 sagittal image 38/85). This finding demonstrates an approximate density of 200 HU. No gross inflammatory changes or submucosal emphysematous changes are noted in this region. The transverse aorta is excluded from the image [id number]. Mild eccentric nonocclusive calcific atherosclerosis is present in the left and right carotid bulbs. No carotid or vertebral artery stenoses are identified. No vascular dissections are noted within the visualized carotid and vertebral artery systems. Within the incidentally visualized intracranial structures, no gross abnormalities are noted. Moderate opacification of scattered ethmoid air cells and mild opacification of right frontal sinus is visualized. Mild opacification of a left lateral sphenoid air cell is demonstrated. The left mastoid air cells are hypoplastic. A right laryngocele demonstrates possible mild penetration of the thyroid cartilage and measures approximately 1.1 cm in maximum radial extension. No adjacent inflammatory changes are noted. A diminutive left laryngocele measuring approximate 4 mm in maximum dimension is noted. Scattered punctate calcific bodies are noted in the region of the submucosa of the supraglottic larynx without associated adjacent mucosal inflammatory changes may represent punctate submucosal calcified retention cysts or cartilaginous calcifications. IMPRESSION: 1. Indeterminate 8 mm linear density in the region of the subcutaneous of the anterior left lateral aspect of the vallecula. This finding could represent an embedded foreign body. No adjacent inflammatory changes or adjacent submucosal emphysema are noted. In the correct clinical setting, this linear radiodensity could represent a wire from a grill-cleaning brush. Consider further evaluation with direct visualization. (axial image 63/111, series 2, series 601 sagittal image 38/85) Dr. Paul and I discussed this finding at 8:35 AM 10/08/2017. 2. Bilateral laryngoceles described above. 3. Nonocclusive bilateral carotid bulb calcific atherosclerosis.
== END 2017-10-08 00:29 ==
LOC: ERH 19:33
PROVIDERS: Physician Assistant Medical
DX: R07.0 Pain in throat (principal)
CPT/HCPCS: 71046; 96374; J1885